=== PATIENT | male | born 1945 | race Caucasian/White ===

== ENCOUNTER 2023-02-11 12:34 | Outpatient (CLI) | payer MEDICARE, BC | END 2023-02-11 12:35 | disposition home or self-care (01) | LOC: ULT 12:34 | PROVIDERS: ATTEND Family Medicine | DX: E07.89 Other specified disorders of thyroid (principal); R59.1 Generalized enlarged lymph nodes | CPT/HCPCS: 76536 ==

== ENCOUNTER 2024-05-15 21:28 | Inpatient (IN) | payer MEDICARE, SELFPAY ==
[~2024-05-15 21:28] MED LIST: Iopamidol-370 76% 500 ML MDV (1 ML CHARGE) ONE
[2024-05-15 22:47] LABS: #Basophils 0.09 10x3/uL (0.0-0.2); %Eosinophils 1.9 % (0.0-10.0); %Lymphocytes 23.9 % (21.0-51.0); %Monocytes 14.6 % (0.0-10.0); %Neutrophils 58.3 % (42.0-75.0); Hematocrit 40.7 % (42.0-52.0); Hemoglobin 13.6 g/dL (14.0-18.0); Mean Corpuscular HGB CONC 33.4 g/dL (32.0-36.0); Mean Corpuscular Volume 92.7 fL (78.0-98.0); Mean Platelet Volume 9.3 fL (7.4-10.4); Platelet Count 186 10x3/uL (130-400); RBC Distribution Width 14.4 % (11.5-14.5); Red Blood Cell (RBC) Count 4.39 mill/uL (4.70-6.10)
[2024-05-15 23:13] LABS: ALT (SGPT) 28 U/L (8-55); AST (SGOT) 25 U/L (5-34); Albumin 3.3 g/dL (3.4-4.8); Alkaline Phosphatase 99 U/L (40-110); Anion Gap 15 mmol/L (10-20); BUN (Urea Nitrogen) 11 mg/dL (8.4-25.7); Bilirubin, Total 0.6 mg/dL (0.2-1.2); Calc. Creatinine Clearance 0 mL/min (70-130); Calcium 9.4 mg/dL (7.8-10.44); Carbon Dioxide 23 mmol/L (23-31); Chloride 103 mmol/L (98-107); Estimated GFR 86; Globulin 4.1 g/dL (2.4-3.5); Glucose 110 mg/dL (83-110); Lipase 40 U/L (8-78); Potassium 4.4 mmol/L (3.5-5.1); Protein, Total 7.4 g/dL (5.8-8.1); Sodium 137 mmol/L (136-145)
[2024-05-15 23:14] LABS: Troponin I Less than 0.010 ng/mL (< 0.028)
[2024-05-16 02:21] LABS: INR-International Normal Ratio 1.2; PTT 34.9 sec (22.9-36.1); Prothrombin Time 15.1 sec (12.0-14.7)
[2024-05-16] MEDS ORDERED: traMADol HCl 50 MG TAB PO PRN (03:04)
[2024-05-16] MEDS ORDERED: Acetaminophen 325 MG TAB PO PRN (03:04)
[2024-05-16] MEDS ORDERED: Ondansetron ODT 4 MG TAB PO PRN (03:04)
[2024-05-16] MEDS ORDERED: Ondansetron PF 4 MG/2 ML Vial IVP PRN (03:04)
[2024-05-16] MEDS ORDERED: Enoxaparin 100 MG (1 mL) SYRINGE ONE (04:32)
[2024-05-16 05:15] LABS: #Basophils 0.08 10x3/uL (0.0-0.2); %Basophils 1.1 % (0.0-1.0); %Eosinophils 2.9 % (0.0-10.0); %Lymphocytes 24.7 % (21.0-51.0); %Monocytes 15.1 % (0.0-10.0); %Neutrophils 55.8 % (42.0-75.0); Hematocrit 41.2 % (42.0-52.0); Hemoglobin 13.5 g/dL (14.0-18.0); Mean Corpuscular HGB CONC 32.8 g/dL (32.0-36.0); Mean Corpuscular Hemoglobin 30.5 pg (27.0-31.0); Mean Platelet Volume 9.8 fL (7.4-10.4); Platelet Count 166 10x3/uL (130-400); RBC Distribution Width 14.6 % (11.5-14.5); Red Blood Cell (RBC) Count 4.43 mill/uL (4.70-6.10)
[2024-05-16 05:32] LABS: ALT (SGPT) 27 U/L (8-55); AST (SGOT) 23 U/L (5-34); Albumin 3.1 g/dL (3.4-4.8); Alkaline Phosphatase 100 U/L (40-110); Anion Gap 12 mmol/L (10-20); BUN (Urea Nitrogen) 10 mg/dL (8.4-25.7); Bilirubin, Total 0.6 mg/dL (0.2-1.2); Calc. Creatinine Clearance 0 mL/min (70-130); Calcium 9.1 mg/dL (7.8-10.44); Carbon Dioxide 27 mmol/L (23-31); Chloride 104 mmol/L (98-107); Estimated GFR 92; Globulin 3.9 g/dL (2.4-3.5); Glucose 101 mg/dL (83-110); Potassium 4.3 mmol/L (3.5-5.1); Sodium 139 mmol/L (136-145)
[2024-05-16 07:19] VITALS: TEMP 98.1
[2024-05-16] MEDS ORDERED: Heparin 25,000 units/D5W 500 ML IVPB SCH (10:00)
[2024-05-16] MEDS ORDERED: Heparin 10,000 UNITS/ 10 ML VIAL SLOW IVP SCH (10:00)
[2024-05-16 10:26] LABS: Hematocrit 41.4 % (42.0-52.0); Hemoglobin 13.9 g/dL (14.0-18.0); Platelet Count 171 10x3/uL (130-400)
[2024-05-16] MEDS ORDERED: Famotidine 20 MG TAB ONE (10:58)
[2024-05-16] MEDS: Famotidine 20 MG TAB PO SCH (11:08)
[2024-05-16] MEDS: Famotidine/PF 20 mg/2ml Vial SLOW IVP SCH (11:16)
[2024-05-16 11:22] VITALS: BP 154/92
[2024-05-16] MEDS ORDERED: Atorvastatin Calcium 20 MG TAB PO SCH (21:00)
[2024-05-16] MEDS ORDERED: OLANZapine 2.5 MG TAB PO SCH (21:00)
== END 2024-05-18 15:26 | disposition home or self-care (01) | DRG 176 ==
LOC: ERS 21:28 → ERHOLD 05-16 03:06 → OBSVTOIN 05-16 09:49 → ERHOLD 05-16 15:26
PROVIDERS: ADMIT Internal Medicine; ATTEND Internal Medicine
DX: I26.99 Other pulmonary embolism without acute cor pulmonale (principal); C25.9 Malignant neoplasm of pancreas, unspecified; F41.9 Anxiety disorder, unspecified; E78.5 Hyperlipidemia, unspecified
CPT/HCPCS: 36415; 71275; 80053; 83605; 83690; 83880; 84484; 85025; 85610; 85730; 93005; 96372; G0378; J1644; J1650; Q9967